=== PATIENT | male | born 2000 | race Caucasian/White ===

== ENCOUNTER 2020-11-28 07:20 | Emergency (ER) | payer OTHER ==
[~2020-11-28] VITALS: Ht 188 cm; Wt 70.3 kg
--- NOTE | 2020-11-28 07:35 | NUR ---
PAIN WHEN TAKING DEEP BREATHS SINCE WAKING UP THIS AM. S/P SMOKING MARIJUANA LAST NIGHT. PATIENT A/OX4, BREATHING EVEN AND UNLABORED, NO SOB NOTED. PULSE OX ON ROOM AIR SHOWS 99%.
[2020-11-28] MEDS ORDERED: IBUPROFEN 400 MG TABLET PO ONE (08:00)
[2020-11-28] MEDS ORDERED: IBUPROFEN 400 MG TABLET ONE (08:03)
[2020-11-28] MEDS ORDERED: IBUP-1957 PO (08:17)
--- NOTE | 2020-11-28 08:28 | NUR ---
Patient discharged to home in stable condition. Written and verbal after care instructions given. Patient verbalizes understanding of instruction.
[2020-11-28 08:30] VITALS: BP 116/97
== END 2020-11-28 08:31 | disposition home or self-care (01) ==
LOC: ER 07:20
DX: R07.81 Pleurodynia (principal); R00.1 Bradycardia, unspecified; J45.909 Unspecified asthma, uncomplicated; Z88.5 Allergy status to narcotic agent
CPT/HCPCS: 71045-TC